=== PATIENT | female | born 1950 | race Caucasian/White ===

== ENCOUNTER 2023-02-19 09:23 | Day surgery (SDC) | payer OTHER ==
[2023-02-18 15:37] LABS: Absolute Lymphocytes (CBC) 1.7 K/uL (0.7-4.9); Hematocrit 39.7 % (36.0-45.0); Lymphocytes % 26.5 % (15.3-44.8); MCV 92.5 fL (80-100); MPV 6.6 fL (7.6-11.3); RBC Red Blood Cell Count 4.29 M/uL (3.86-4.86)
[2023-02-18 15:52] LABS: Potassium 3.5 mEq/L (3.5-5.1)
[2023-02-19] MEDS ORDERED: Ringers Lactate 1,000 ML IV ONE (09:45)
[2023-02-19] MEDS ORDERED: CEFAZOLIN SODIUM 1 GM/VIAL ONE (09:45)
[2023-02-19] MEDS ORDERED: dexAMETHasone 10 MG/ML VIAL ONE ×3 (11:14→11:20)
[2023-02-19] MEDS ORDERED: EPINEPHRINE/PF 1 MG/ML AMP ONE ×2 (11:14→11:19)
[2023-02-19] MEDS ORDERED: LIDOCAINE 1% MPF 5 ML VIAL ONE ×3 (11:14→11:20)
[2023-02-19] MEDS ORDERED: FENTANYL CITR 100 MCG/2 ML ONE (11:19)
[2023-02-19] MEDS ORDERED: propofoL 200 MG/20 ML VIAL IV ONE (11:19)
[2023-02-19] MEDS ORDERED: MIDAZOLAM HCL 2 MG/2 ML INJ ONE (11:20)
[2023-02-19] MEDS ORDERED: KETOROLAC 30 MG/ML INJ ONE (11:20)
[2023-02-19] MEDS ORDERED: ONDANSETRON 4 MG/2 ML VIAL ONE (11:21)
--- NOTE | 2023-02-19 13:45 | RAD REPORT ---
EXAM DESCRIPTION: RAD - Wrist Left 2 View - 02/19/2023 1:38 pm CLINICAL HISTORY: ORIF COMPARISON: None available. FINDINGS: Multiple Images were sent to PACS, documenting image guidance during open reduction public health internship al fixation of the left wrist. No radiologist was available for the procedure, nor will any image int erpretation he provided. Please refer to the procedural report for additional details. Fluoroscopy time: 1.73 Minutes. IMPRESSION: Documentation of fluoroscopy utilization as above.
[2023-02-19 15:29] VITALS: BP 127/62; TEMP 97.2; O2SAT 98
--- NOTE | 2023-02-20 00:42 | OP ---
Date of Procedure: 02/19/2023 Surgeon: Samm Underwood MD Preoperative Diagnosis: Left distal radius fracture with 2 intraarticular fragments. Postoperative Diagnosis: Left distal radius fracture with 2 intraarticular fragments. Procedure: Left wrist open reduction internal fixation of 2 intraarticular fragments using the Acume d 2 volar plating set. Estimated Blood Loss: Less than 10 cc. Complications: There were no complications. Pathology Specimens: No pathology specimens sent. Indications: Ms. Calderon came to see me after falling onto her left wrist. She had pain and swelli ng related to her left wrist and arrived in a sugar-tong splint. There was no sign of an open injury . She was complaining of some rough "tingling" of her fingers when seen in clinic. However, she did have intact sensation. She is again checked in the preop holding area. She says she still may have some tingling, but this involves all of her fingers and does not appear to be isolated to the median nerve and she says that mostly it just hurts when she moves her fingers. I discussed with both her and her family carpal tunnel release versus pursuing without carpal tunnel release, and at this point , it appears that her median nerve appears to be doing well and risks, benefits, and alternatives to the procedure again discussed with them. They state they understand things as presented and wished t o proceed. Description Of Procedure: The patient was taken to the operating room and placed in supine position. General anesthesia was obtained by staff. Following this, well-padded tourniquet was placed on sup erior left arm. Left upper extremity was then prepped and draped in the usual sterile fashion for th is procedure. The arm was then elevated, but not exsanguinated. Tourniquet was raised. C-arm was b rought in and we can demonstrate a reduction with large enough fragments that pursuing open reduction internal fixation appears to be the correct course, although we did have alternatives such as pins a nd external fixator available. Decision was made to proceed with open reduction internal fixation. A standard volar approach pin was taken down carefully through skin and soft tissues with the zigzag at the distal wrist crease. This leads to the tendon of the flexor carpi radialis which was then exp osed. It was then retracted radialward to protect the radial artery. The underlying sheath was then exploited. A Raytec was used to bluntly move the tendon and muscle belly of the flexor pollicis melony anh ulnarward to protect the median nerve. After this, the pronator quadratus was then divided at it s midsubstance longitudinally and a wood handle elevator was then used to expose the flat surface as well as the fracture site of the distal radius. A narrow left plate was selected. It was then appli ed in standard fashion to the radial shaft with a reduction maneuver. It does appear to get an accep table reduction and the remaining pegs were then placed in standard fashion. After this, the initial toggle screw was replaced with addition of the additional 2 shaft screws. Visualization of the frac ture demonstrates an acceptable reduction with no intraarticular screws and the plate appears to be w ell placed. The wound was gently irrigated and the skin was closed using a combination of horizontal mattress and interrupted sutures. The patient was then placed in a well-padded sterile dressing as well as a volar splint. She is left in the operating room as the plan is for anesthesia to perform a block. However, there were no complications. /ISAI Voice ID: [id number] Report ID: [id number]
--- NOTE | 2023-02-20 16:23 | EKG ---
Test Date: 2023-02-18 Test Time: 15:01:55 Bicycle Service Technician: B MEASUREMENT RESULTS: Intervals: Rate: 54 OH: 128 QRSD: 72 QT: 464 QTc: 440 [place]: P: 58 OH: 128 QRS: -27 T: 69 INTERPRETIVE STATEMENTS: Sinus bradycardia Low voltage QRS Septal infarct, age undetermined Abnormal ECG Compared to ECG 05/17/2003 15:19:00 Low QRS voltage now present Myocardial infarct finding now present Sinus rhythm no longer present Electronically Signed On 02-20-23 16:18:52 CDT by Shalom Pedro
== END 2023-02-19 14:44 | disposition home or self-care (01) ==
LOC: OR 09:23
PROVIDERS: ATTEND Orthopaedic Surgery
PROC: 0PSJ04Z Reposition Left Radius with Internal Fixation Device, Open Approach (ICD-10-PCS; principal; 2023-02-19 11:30)
DX: S52.572A Other intraarticular fracture of lower end of left radius, initial encounter for closed fracture (principal); G56.02 Carpal tunnel syndrome, left upper limb; X58.XXXA Exposure to other specified factors, initial encounter
CPT/HCPCS: 93005; 85025; 80048; 36415; 73100; 25608; J2704; J0171 ×2; J2001 ×3; J2250; J3010; J1100 ×3; J2405; J7120; J0690

== ENCOUNTER 2024-10-17 14:43 | Emergency (ER) | payer OTHER ==
[2024-10-17] MEDS ORDERED: NA CHLORIDE 0.9% 1,000 ML ONE (16:48)
[2024-10-17 16:49] LABS: Specific Gravity 1.023 (1.005-1.030); Sqamous Epithelial <5 /HPF (None Seen); Urine Bacteria None Seen /HPF (<20); Urine Bilirubin NEGATIVE (Negative); Urine Blood Trace (Negative); Urine Clarity Clear (Clear); Urine Color Yellow (Yellow); Urine Culture Reflex Order NOT NEEDED; Urine Glucose NEGATIVE (Negative); Urine Ketones 1+ (Negative); Urine Microscopic Reflex YN ORDER UMIC; Urine Mucus Slight /HPF (None Seen); Urine Nitrite NEGATIVE (Negative); Urine Protein 1+ (Negative); Urine RBC <5 /HPF (None Seen); Urine Urobilinogen Normal (Normal); Urine WBC <5 /HPF (<5); Urine Yeast (Budding) Trace /HPF (None Seen)
[2024-10-17 16:58] LABS: Absolute Lymphocytes (CBC) 1.6 K/uL (0.7-4.9); Absolute Monocytes 0.4 K/uL (0.1-1.3); Absolute Neutrophil 6.7 K/uL (1.8-8.0); Basophils % 0.1 % (0-1.3); Hematocrit 40.7 % (36.0-45.0); Hemoglobin 14.2 g/dL (12.0-15.0); Lymphocytes % 18.5 % (15.3-44.8); MCH 31.8 pg (27.0-35.0); MCHC 34.9 g/dL (32.0-36.0); MCV 91.1 fL (80-100); MPV 6.9 fL (7.6-11.3); Monocytes % 4.6 % (3.3-12.3); Neutrophils % 76.8 % (41.7-73.7); Platelets 216 thou/uL (152-406); RBC Red Blood Cell Count 4.46 M/uL (3.86-4.86); Red Cell Distribution Width 13.8 % (12.1-15.2)
[2024-10-17 17:15] LABS: Albumin 3.8 g/dL (3.4-5.0); Albumin/Globulin Ratio 1.2 (1.1-1.8); Anion Gap 7.6 mEq/L (5.0-15.0); Bilirubin Total 0.4 mg/dL (0.2-1.0); Globulin 3.3 g/dL (2.3-3.5); Potassium 3.6 mEq/L (3.5-5.1); Protein, Total 7.1 g/dL (6.4-8.2)
--- NOTE | 2024-10-17 18:10 | RAD REPORT ---
EXAMINATION: CT ABDOMEN AND PELVIS WITH CONTRAST CLINICAL INDICATION: Abdominal pain TECHNIQUE: CT abdomen and pelvis was performed, after the administration of 100 cc Isovue-300.. Sagit rosetta and coronal reconstructions were obtained. One or more of the following dose reduction techniques were used: Automated exposure control, adjustment of the mA and kV according to patient si ze, and iterative reconstruction. Unless otherwise specified, incidental findings do not require dedicated imaging follow-up. [id number]. Oral contrast was not given which limits evaluation of bowel and appendix. COMPARISON: .2009 FINDINGS: Cholecystectomy. Liver, spleen, right adrenal gland unremarkable. Tiny renal calculi. No hydronephrosis. 2.1 cm left adrenal mass has developed since 2008. Hounsfield units 61. Atrophic pancreas Apparent mild thickening wall of the distal stomach Hysterectomy. No adnexal mass. Diverticula stem from colon without visualization of diverticulitis Moderate atherosclerosis: IMPRESSION: Apparent mild wall thickening wall of the distal stomach could be secondary to incomplete distention or inflammation. 2.1 cm left adrenal mass is probably an adenoma. However, it is recommended that patient have a none ergent MRI for further evaluation
--- NOTE | 2024-10-17 18:34 | EDPHYS ---
Physician Documentation [facility] Name: Selena Calderon Age: 73 yrs Sex: Female : 1950 Arrival Date: 10/17/2024 Time: 14:43 Bed DX1 Private MD: ED Physician Asad Arriaga HPI: 10/17 15:10 This 73 yrs old Female presents to ER via Ambulatory with complaints of Nausea/Vomiting.kb 15:10 Pt is a 73 year old female who presents for n/v/d and abd pain that started last night. kb states she hasn't had diarrhea since last night. Reports nausea and vomiting resolved about one hour ago and she has been tolerating water and coke. STates she wasn't able to tolerate food when she tried earlier. Denies fever. . Historical: - Allergies: 15:06 No Known Allergies; ld1 - Home Meds: 15:06 Prolia 60 mg/mL subcutaneous Syringe [Active]; ld1 - PMHx: 15:06 Migraine; Osteoporosis; Hypercholesterolemia; ld1 - Immunization history:: Adult Immunizations up to date. - Infectious Disease History:: Denies. - Social history:: Smoking status: Patient reports the use of cigarette tobacco products. ROS: 15:11 Constitutional: As per HPI kb Exam: 18:32 Constitutional: This is a well developed, well nourished patient who is awake, alert, kb and in no acute distress. Head/Face: Normocephalic, atraumatic. ENT: Moist Mucous membranes Cardiovascular: Regular rate Respiratory: Respirations even and unlabored. No increased work of breathing. Talking in full sentences Skin: Warm, dry with normal turgor. Normal color. MS/ Extremity: Pulses equal, no cyanosis. Neurovascular intact. Full, normal range of motion. Neuro: Awake and alert, GCS 15, oriented to person, place, time, and situation. 18:34 Abdomen/GI: Inspection: abdomen appears normal, Bowel sounds: normal, Palpation: soft, kb in all quadrants, mild abdominal tenderness, in all quadrants, Vital Signs: 15:05 BP 147 / 84; Pulse 68; Resp 18; Temp 98.2(TE); Pulse Ox 96% on R/A; Weight 51.71 kg; ld1 Height 5 ft. 2 in. ; Pain 0/10; 15:05 Body Mass Index 20.85 (51.71 kg, 157.48 cm) ld1 15:05 Pain Scale: Adult ld1 MDM: 14:52 Medical Screening Exam initiated kb 18:33 Differential diagnosis: Nonspecific abd pain, diverticulitis, viral gastroenteritis. kb Data reviewed: vital signs, nurses notes. I considered the following discharge prescriptions or medication management in the emergency department Antibiotics: At this time antibiotics are not recommended. Historians other than the Patient: Daughter/Son: daughter. Counseling: I had a detailed discussion with the patient and/or guardian regarding the historical points, exam findings, and any diagnostic results supporting the discharge/admit diagnosis, lab results, radiology results, the need for outpatient follow up, a family practitioner, to return to the emergency department if symptoms worsen or persist or if there are any questions or concerns that arise at home. 10/17 15:10 Order name: CBC with Diff; Complete Time: 17:02 kb 10/17 15:10 Order name: CMP; Complete Time: 17:19 kb 10/17 15:10 Order name: Lipase; Complete Time: 17:19 kb 10/17 15:10 Order name: Urinalysis w/ reflexes; Complete Time: 16:59 kb 10/17 15:10 Order name: CT Abd/Pelvis - IV Contrast Only; Complete Time: 18:25 kb 10/17 15:10 Order name: IV Saline Lock; Complete Time: 16:57 kb 10/17 15:10 Order name: Labs collected and sent; Complete Time: 16:57 kb Administered Medications: 16:57 Drug: NS 0.9% IV 1000 ml IV at 1 bolus Per protocol; to be given as a bolus over 60 ss minutes Route: IV; Rate: 1 bolus; Site: left antecubital; 17:57 Follow up: IV Status: Completed infusion; IV Intake: 1000ml ss Disposition: 17:59 I was immediately available on-site in the Emergency Department for consultation in the ak3 care of the patient. Disposition Summary: 10/17/24 18:33 Discharge Ordered Notes: Location: Home kb Condition: Stable kb Diagnosis - Nausea with vomiting, unspecified kb - Diarrhea, unspecified kb Followup: kb - With: Emergency Department - When: As needed - Reason: Worsening of condition Followup: kb - With: Private Physician - When: 2 - 3 days - Reason: Recheck today's complaints, Continuance of care, Re-evaluation by your physician Discharge Instructions: - Discharge Summary Sheet kb - Food Choices to Help Relieve Diarrhea, Adult kb - Nausea and Vomiting, Adult, [id number] kb - Diarrhea, Adult, [id number] kb Forms: - Medication Reconciliation Form kb - Antibiotic Education kb - Prescription Opioid Use kb - Patient Portal Instructions kb - Leadership Thank You Letter kb Prescriptions: - ondansetron 4 mg Oral Tablet,disintegrating - take 1 tablet ORAL route every 6 hours As needed; 12 tablet; Refills: 0, kb Product Selection Permitted Signatures: Dispatcher [employer] EDMS Viv Leahy, SENIOR QUALITY METHODS SPECIALIST-C SENIOR QUALITY METHODS SPECIALIST-Abi Pozo, RN RN ss Asad Arriaga, DO ms3 Claudia Arriaga RN RN ld1 Corrections: (The following items were deleted from the chart) 15:10 15:10 CBC+H.LAB.BRZ ordered. EDMS EDMS 15:10 15:10 COMPREHENSIVE METABOLIC PANEL+C.LAB.BRZ ordered. EDMS EDMS 15:10 15:10 LIPASE+C.LAB.BRZ ordered. EDMS EDMS 15:10 15:10 Urinalysis+U.LAB.BRZ ordered. EDMS EDMS 15:10 15:10 Abdomen Pelvis W Con+CT.RAD.BRZ ordered. EDMS EDMS 18:34 18:32 Constitutional: This is a well developed, well nourished patient who is awake, kb alert, and in no acute distress. Head/Face: Normocephalic, atraumatic. ENT: Moist Mucous membranes Cardiovascular: Regular rate Respiratory: Respirations even and unlabored. No increased work of breathing. Talking in full sentences Abdomen/GI: Soft, non-tender. No distention Skin: Warm, dry with normal turgor. Normal color. MS/ Extremity: Pulses equal, no cyanosis. Neurovascular intact. Full, normal range of motion. Neuro: Awake and alert, GCS 15, oriented to person, place, time, and situation. kb
--- NOTE | 2024-10-17 18:34 | ER ---
Nurse's Notes [facility] Name: Selena Calderon Age: 73 yrs Sex: Female : 1950 Arrival Date: 10/17/2024 Time: 14:43 Bed DX1 Private MD: Diagnosis: Nausea with vomiting, unspecified;Diarrhea, unspecified Presentation: 10/17 15:05 Chief complaint: Patient states: N/V/D since last night. Coronavirus screen: At this ld1 time, the client does not indicate any symptoms associated with coronavirus-19. Ebola Screen: No symptoms or risks identified at this time. Initial Sepsis Screen: Does the patient meet any 2 criteria? No. Patient's initial sepsis screen is negative. Does the patient have a suspected source of infection? No. Patient's initial sepsis screen is negative. Risk Assessment: Do you want to hurt yourself or someone else? Patient reports no desire to harm self or others. Onset of symptoms was October 17, 2024. 15:05 Method Of Arrival: Ambulatory ld1 15:05 Acuity: STEVEN 3 ld1 Triage Assessment: 15:06 General: Appears in no apparent distress. comfortable, Behavior is calm, cooperative, ld1 appropriate for age. Pain: Denies pain. EENT: No signs and/or symptoms were reported regarding the EENT system. Neuro: Level of Consciousness is awake, alert, obeys commands, Oriented to person, place, time, situation. Cardiovascular: Capillary refill < 3 seconds Patient's skin is warm and dry. Respiratory: Airway is patent Respiratory effort is even, unlabored. GI: Abdomen is flat, non-distended, Reports diarrhea, nausea, vomiting. : No signs and/or symptoms were reported regarding the genitourinary system. Derm: No signs and/or symptoms reported regarding the dermatologic system. Musculoskeletal: No signs and/or symptoms reported regarding the musculoskeletal system. Historical: - Allergies: 15:06 No Known Allergies; ld1 - Home Meds: 15:06 Prolia 60 mg/mL subcutaneous Syringe [Active]; ld1 - PMHx: 15:06 Migraine; Osteoporosis; Hypercholesterolemia; ld1 - Immunization history:: Adult Immunizations up to date. - Infectious Disease History:: Denies. - Social history:: Smoking status: Patient reports the use of cigarette tobacco products. Screenin:51 Abuse screen: Denies threats or abuse. Denies injuries from another. Nutritional ss screening: No deficits noted. Tuberculosis screening: Assessment: 18:51 Reassessment: Patient appears in no apparent distress at this time. Patient and/or ss family updated on plan of care and expected duration. Pain level reassessed. Patient is alert, oriented x 3, equal unlabored respirations, skin warm/dry/pink. Vital Signs: 15:05 BP 147 / 84; Pulse 68; Resp 18; Temp 98.2(TE); Pulse Ox 96% on R/A; Weight 51.71 kg; ld1 Height 5 ft. 2 in. ; Pain 0/10; 15:05 Body Mass Index 20.85 (51.71 kg, 157.48 cm) ld1 15:05 Pain Scale: Adult ld1 ED Course: 14:48 Patient arrived in ED. cj3 14:52 Viv Leahy FNP-C [facility]. kb 14:52 Asad Arriaga DO is Attending Physician. kb 15:06 Triage completed. ld1 15:06 Arm band placed on right wrist. ld1 16:23 Radiology exam delayed due to lab results not completed at this time. IV insertion jc4 attempt and/or patient not having appropriate IV at this time. 16:51 Abi Nuñez, RN is Primary Nurse. ss 16:51 Initial lab(s) drawn, by me, sent to lab. Inserted saline lock: 22 gauge in left tm3 antecubital area, using aseptic technique. 17:57 CT Abd/Pelvis - IV Contrast Only In Process Unspecified. EDMS 18:51 No provider procedures requiring assistance completed. IV discontinued, intact, ss bleeding controlled, No redness/swelling at site. Pressure dressing applied. Administered Medications: 16:57 Drug: NS 0.9% IV 1000 ml IV at 1 bolus Per protocol; to be given as a bolus over 60 ss minutes Route: IV; Rate: 1 bolus; Site: left antecubital; 17:57 Follow up: IV Status: Completed infusion; IV Intake: 1000ml ss Medication: 18:51 VIS not applicable for this client. ss Intake: 17:57 IV: 1000ml; Total: 1000ml. ss Outcome: 18:33 Discharge ordered by . kb 18:51 Discharged to home ambulatory, with family, ss 18:51 Condition: good 18:51 Discharge instructions given to patient, Instructed on discharge instructions, follow up and referral plans. medication usage, Demonstrated understanding of instructions, follow-up care, medications, Prescriptions given X 1, 18:52 Patient left the ED. Signatures: Dispatcher [employer] EDMN Viv Leahy, TIANNA-C VEGETABLE FARM MANAGER-Ckcarmela Berry, Eligio tm3 Abi Nuñez RN RN Claudia Arriaga RN RN ld1 Simone Jimenes 4 Autumn Mayo 3
[2024-10-17 19:35] VITALS: BP 147/84; TEMP 98.2; O2SAT 96
== END 2024-10-17 18:52 | disposition home or self-care (01) ==
LOC: ER 14:43
DX: R11.2 Nausea with vomiting, unspecified (principal); R19.7 Diarrhea, unspecified; Z72.0 Tobacco use
CPT/HCPCS: 85025; 81001; 36415; 83690; 80053; 74177; J7030